=== PATIENT | male | born 1995 | race Two or more races ===

== ENCOUNTER 2025-04-28 22:11 | Emergency (ER) | payer OTHER ==
[~2025-04-28] VITALS: Ht 188 cm; Wt 105.8 kg
[2025-04-28 22:11] VITALS: BP 145/101; TEMP 98.4
--- NOTE | 2025-04-29 00:20 | DVH ---
EXAM: CT HEAD WITHOUT CONTRAST INDICATION: headache TECHNIQUE: CT of the head without intravenous contrast. Radiation Dose : 1. Head: CT Dose: CTDI volume is 59.9 mGy. Dose-length product is 1.71 mGy*cm The dose indicators for CT are the volume Computed Tomography (CT) Dose Index (CTDIvol) and the Dose Length Product (DLP), and are measured in units of mGy and mGy-cm, respectively. These indicators are not patient dose, but values generated from the CT scanner acquisition factors. The report includes radiation exposure data for exposures received during this examination. COMPARISON: None FINDINGS: Evaluation is mildly degraded by streak artifact. The cerebral parenchyma appears to be normal configuration and attenuation. The ventricles, cisterns , and sulci appear age-appropriate. There is no evidence for acute territorial infarct, hemorrhage, or mass effect. The orbits are normal. Polyp versus retention cyst within the right maxillary antrum. The soft tiss ues and osseous structures appear within normal limits. IMPRESSION: 1. No acute territorial infarct, intracranial hemorrhage, or mass effect. 2. If clinical symptoms persist, MRI may be beneficial in further evaluation. Radiation optimization: All CT scans at this facility use at least one of these dose optimization aaron hniques: automated exposure control mA and/or kV adjustment per patient size (includes targeted exam s where dose is matched to clinical indication) or iterative reconstruction.
[2025-04-29] MEDS ORDERED: ACET500T58 PO (01:20)
--- NOTE | 2025-04-29 01:20 | ED.PDOC ---
HPI (NEURO) HPI Comments 29 year male presents to ER with complaints of headache x 2 days. Patient states he has been experiencing intermittent frontal headaches x 2 days with associated nausea x 1 day. He rates his current pain a 6/10 diffuse to forehead and notes he did take Advil for his pain with some relief. Patient presents to ER ambulatory on arrival, alert and oriented x4, with steady gait, in no distress with blood pressure elevated at 145/101, denying any known history of high blood pressure. Denies fever, vomiting, head injury, numbness/tingling, dizziness, runny nose/recent illness or any further symptoms/complaints Chief Complaint: Headache Time Seen by MD: 22:52 Primary Care Provider: UNKNOWN Reviewed Notes: Nurses Notes, Medications, Allergies Information Source: Patient Mode of Arrival: Ambulatory Past Medical History PAST MEDICAL HISTORY: Denies Surgical History: Denies all surgeries Family History Family History: Unknown Social History Smoker: Non-Smoker Alcohol: Denies ETOH Use Drugs: Denies Drug Use Lives In: Home Constitutional: denies: chills, diaphoresis, fatigue, fever, malaise, sweats, weakness, others EENTM: denies: blurred vision, double vision, ear bleeding, ear discharge, ear drainage, ear pain, ear ringing, eye pain, eye redness, hearing loss, mouth pain, mouth swelling, nasal discharge, nose bleeding, nose congestion, nose pain, photophobia, tearing, throat pain, throat swelling, voice changes, others Respiratory: denies: cough, hemoptysis, orthopnea, SOB at rest, shortness of breath, SOB with excertion, stridor, wheezing, others Cardiovascular: denies: chest pain, dizzy spells, diaphoresis, Dyspnea on exertion, edema, irregular heart beat, left arm pain, lightheadedness, palpitations, PND, syncope, others Gastrointestinal: reports: others (As stated in HPI) Genitourinary: denies: burning, dysuria, flank pain, frequency, hematuria, incontinence, penile discharge, penile sore, pain, testicle pain, testicle swelling, urgency, others Neurological: reports: others (As stated in HPI) Musculoskeletal: denies: back pain, gout, joint pain, joint swelling, muscle pain, muscle stiffness, neck pain, others Integumetry: denies: bruises, change in color, change in hair/nails, dryness, laceration, lesions, lumps, rash, wounds, others Allergic/Immunocompromised: denies: Difficulty Healing, Frequent Infections, Hives, Itching, others Hematologic/Lymphatic: denies: anemia, blood clots, easy bleeding, easy bruising, swollen glands, others Endocrine: denies: excessive hunger, excessive sweating, excessive thirst, excessive urination, flushing, intolerance to cold, intolerance to heat, unexplained weight gain, unexplained weight loss, others Psychiatric: denies: anxiety, bipolar disorder, depression, hopeless, panic disorder, schizophrenia, sleepless, suicidal, others Physical Exam General Appearance: No Apparent Distress, Normal HEENT: Normal ENT Inspection, PERRL/EOMI, Pharynx Normal, TMs Normal Neck: Full Range of Motion, Non-Tender, Normal Respiratory: Chest Non-Tender, Lungs Clear, No Accessory Muscle Use, No Respiratory Distress, Normal Breath Sounds Cardiovascular: No Murmur, No Gallop, Regular Rate/Rhythm Breast Exam: Deferred Gastrointestinal: NOT DONE Genitalia: Deferred Pelvic: Deferred Rectal: Deferred Extremities: Normal capillary refill, Normal range of motion Neurologic: Alert, polisher hand II-XII nml as Tested, No Motor Deficits, Normal Affect, Normal Mood, No Sensory Deficits Cerebellar Function: Normal Reflexes: Normal Skin: Dry, Normal Color, Warm Lymphatic: No Adenopathy Was a procedure done? Was a procedure done?: No Sedation Sedation?: No Differential Diagnosis (SZ) Headache: Cluster, Intracerebral Hemorrhage, Subarachnoid Hemorrhage, Subdural Hemorrhage, Mass Lesion, Sinusitis X-Ray, Labs, Meds, VS Vital Signs Date Time Temp Pulse Resp B/P (MAP) Pulse Ox O2 Delivery O2 Flow Rate FiO2 04/28/25 22:11 98.4 96 18 145/101 97 98.4 PATIENT: CHARLIE BRYANACCT: [id number]: [id number] : 1995 LOC: ER ROOM / BED: / AGE / SEX: 29 / M ADM STATUS: REG ER SERVICE [id number] ORDERING PHYSICIAN: MCKINLEY RUFF PROCEDURE(s): HWOCT - HEAD WITHOUT CONTRAST REASON: headache ORDER NUMBER(s): [id number], ACCESSION NUMBER(s): [id number] EXAM: CT HEAD WITHOUT CONTRAST INDICATION: headache TECHNIQUE: CT of the head without intravenous contrast. Radiation Dose : 1. Head: CT Dose: CTDI volume is 59.9 mGy. Dose-length product is 1.71 mGy*cm The dose indicators for CT are the volume Computed Tomography (CT) Dose Index (CTDIvol) and the Dose Length Product (DLP), and are measured in units of mGy and mGy-cm, respectively. These indicators are not patient dose, but values generated from the CT scanner acquisition factors. The report includes radiation exposure data for exposures received during this examination. COMPARISON: None FINDINGS: Evaluation is mildly degraded by streak artifact. The cerebral parenchyma appears to be normal configuration and attenuation. The ventricles, cisterns, and sulci appear age-appropriate. There is no evidence for acute territorial infarct, hemorrhage, or mass effect. The orbits are normal. Polyp versus retention cyst within the right maxillary antrum. The soft tissues and osseous structures appear within normal limits. IMPRESSION: 1. No acute territorial infarct, intracranial hemorrhage, or mass effect. 2. If clinical symptoms persist, MRI may be beneficial in further evaluation. Radiation optimization: All CT scans at this facility use at least one of these dose optimization techniques: automated exposure control mA and/or kV adjustment per patient size (includes targeted exams where dose is matched to clinical indication) or iterative reconstruction. ATED BY: CASSIE MATOS MD DICTATED DATE/TIME: 04/29/25 001 SIGNED BY: CASSIE MATOS MD SIGNED DATE/TIME: 04/29/2516 CC: CT head without contrast reviewed Patient had improvement in symptoms and in no distress prior to discharge Advised to drink plenty of fluids Advised to monitor/record blood pressure readings closely at home Advised to follow up with PCP in 1-2 days Patient verbalized understanding and agreeable with current plan of care Advised to return to ER immediately if symptoms worsen Images Reviewed?: Images reviewed and evaluated by me Time of 1ST Reevaluation: 00:54 Reevaluation 1ST: N/A Patient Education/Counseling: Diagnosis, Treatment, Prognosis, Need For Follow Up Family Education/Counseling: No Family Present Departure 1 Departure Time of Disposition: 01:12 Impression: Primary Impression: Tension headache Disposition: 01 HOME / SELF CARE / HOMELESS Condition: Stable e-Prescriptions Acetaminophen (Acetaminophen) 500 Mg Tab 500 MG PO Q4HPRN, #30 TAB 0 Refills Prov: MCKINLEY RUFF 04/29/25 Discharged With: Self Critical Care Note Critical Care Time?: No Stability Stability form required: No Heart Score Heart Score: Heart Score Response (Comments) Value History N/A 0 EKG N/A 0 Age N/A 0 Risk Factors N/A 0 Troponin N/A 0 Total 0 MCKINLEY RUFF Apr 29, 2025 01:20
[2025-04-29 01:30] VITALS: PULSE 90; RESP 18; O2SAT 97
== END 2025-04-29 01:33 | disposition home or self-care (01) ==
LOC: ER 22:11
DX: G44.209 Tension-type headache, unspecified, not intractable (principal); Z79.899 Other long term (current) drug therapy
CPT/HCPCS: 70450